=== PATIENT | female | born 2000 | race Hispanic/Latino ===

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

== ENCOUNTER 2022-02-06 22:36 | Day surgery (SDC) | payer OTHER, SELFPAY ==
[2022-02-06] MEDS ORDERED: hydrALAZINE 20 MG/ML VIAL SLOW IVP PRN (23:12)
== END 2022-02-07 02:51 | disposition home or self-care (01) ==
LOC: CSHLD/OP 22:36
PROVIDERS: ATTEND Obstetrics & Gynecology
DX: O47.1 False labor at or after 37 completed weeks of gestation (principal); Z3A.39 39 weeks gestation of pregnancy
CPT/HCPCS: 99282

== ENCOUNTER 2022-02-07 15:06 | Inpatient (IN) | payer OTHER, SELFPAY ==
[2022-02-07] MEDS: Lactated Ringer's 1,000 ML IV SCH ×2 (15:43→17:56)
[2022-02-07] MEDS ORDERED: Ondansetron PF 4 MG/2 ML Vial IVP PRN ×2 (15:49→22:57)
[2022-02-07] MEDS ORDERED: Promethazine HCl 25 MG/ML VIAL IM PRN ×2 (15:49→22:57)
[2022-02-07] MEDS ORDERED: hydrALAZINE 20 MG/ML VIAL SLOW IVP PRN ×2 (15:49→22:57)
[2022-02-07] MEDS ORDERED: Butorphanol Tartrate 1 MG/ML VIAL SLOW IVP PRN (15:49)
[2022-02-07] MEDS ORDERED: HYDROcodone/Acetaminophen 5/325 mg Tablet PO PRN ×3 (15:50→22:57)
[2022-02-07] MEDS ORDERED: Ibuprofen 800 MG TAB PO PRN (15:50)
[2022-02-07] MEDS ORDERED: Lidocaine 1% (PF) 30 ML VIAL SC PRN (15:50)
[2022-02-07 15:56] VITALS: BMI 26.5
[2022-02-07] MEDS ORDERED: NS w/ Oxytocin 30 units 500 ML IV SCH ×3 (16:00→23:00)
[2022-02-07] MEDS ORDERED: Lactated Ringer's 1,000 ML IV SCH (16:00)
[2022-02-07 16:10] LABS: Hemoglobin 11.1 g/dL (12.0-15.5); Mean Corpuscular HGB CONC 32.6 g/dL (32.0-36.0); Mean Corpuscular Hemoglobin 24.3 pg (27.0-33.0); Mean Corpuscular Volume 74.4 fl (81.6-98.3); Mean Platelet Volume 11.3 fl (7.4-10.4); Platelet Count 267 10x3/uL (150-450); RBC Distribution Width 13.4 % (11.5-14.5); Red Blood Cell (RBC) Count 4.57 10x6/uL (3.90-5.03); White Blood Cell (WBC) Count 11.9 10x3/uL (3.5-10.5)
[2022-02-07 16:35] LABS: Hep B Surf Ag Non-Reactive S/CO (NonReactive)
[2022-02-07 16:36] LABS: Syphilis Antibody Nonreactive (Nonreactive); Syphilis Antibody Index 0.03 S/CO (<1.00 Non-Reactive)
[2022-02-07 21:03] LABS: SARS-CoV-2 NAA Rapid Test Not Detected (NotDetected)
[2022-02-07] MEDS ORDERED: Benzocaine-Menthol 82.5 ML CAN TOP PRN (22:57)
[2022-02-07] MEDS ORDERED: diphenhydrAMINE 25 MG CAP PO PRN (22:57)
[2022-02-07] MEDS ORDERED: Bisacodyl 10 MG SUPP PR PRN (22:57)
[2022-02-07] MEDS ORDERED: Lanolin Ointment 7 GM TUBE TOP PRN (22:57)
[2022-02-07] MEDS ORDERED: Milk Of Magnesia 30 ML UDCUP PO PRN (22:57)
[2022-02-07] MEDS ORDERED: Boostrix 0.5 ML (Tdap) VIAL IM ONE (22:57)
[2022-02-07] MEDS ORDERED: Docusate 100 MG CAP PO SCH (23:15)
[2022-02-07] MEDS ORDERED: Ibuprofen 800 MG TAB PO SCH (23:15)
[2022-02-08] MEDS: Ibuprofen 800 MG TAB PO SCH ×3 (05:12→21:46)
[2022-02-08] MEDS: Ferrous Sulfate 325 MG TAB PO SCH ×2 (07:41→15:51)
[2022-02-08] MEDS: Docusate 100 MG CAP PO SCH ×2 (08:23→21:45)
[2022-02-08] MEDS: Prenatal Vitamin 1 TAB PO SCH (08:24)
[2022-02-09] MEDS: Ibuprofen 800 MG TAB PO SCH ×2 (05:18→14:32)
[2022-02-09] MEDS: Ferrous Sulfate 325 MG TAB PO SCH (07:34)
[2022-02-09] MEDS: Docusate 100 MG CAP PO SCH (08:16)
[2022-02-09] MEDS: Prenatal Vitamin 1 TAB PO SCH (08:16)
[2022-02-09 08:18] VITALS: BP 123/60; TEMP 97.8
== END 2022-02-09 15:54 | disposition home or self-care (01) | DRG 807 ==
LOC: CSHLD/OP 15:06 → CSHLD 15:55 → CSHPP 22:10
PROVIDERS: ADMIT Family Medicine; ATTEND Family Medicine
PROC: 10E0XZZ Delivery of Products of Conception, External Approach (ICD-10-PCS; principal; 2022-02-07)
PROC: 3E0334Z Introduction of Serum, Toxoid and Vaccine into Peripheral Vein, Percutaneous Approach (ICD-10-PCS; 2022-02-08)
DX: O26.893 Other specified pregnancy related conditions, third trimester (principal); Z37.0 Single live birth; Z67.41 Type O blood, Rh negative; Z20.822 Contact with and (suspected) exposure to COVID-19; Z3A.39 39 weeks gestation of pregnancy
CPT/HCPCS: 85027; 85461; 86780; 86850; 86900; 86901; 87340; 90384; 96372; J0595; J2001; J2590; J7120; U0002